=== PATIENT | female | born 1980 | race Caucasian/White ===

== ENCOUNTER 2021-04-11 10:47 | Emergency (ER) | payer MEDICAID ==
[~2021-04-11] VITALS: Ht 165.1 cm; Wt 55.4 kg
--- NOTE | 2021-04-11 12:01 | NUR ---
Breast feeding. R breast pain, redness, yellow thick pus. Last night fever 102.6 and chills. Last dose of ibuprofen at 1030. Temp now 100/vss
[2021-04-11] MEDS ORDERED: ACETAMINOPHEN 500 MG TABLET PO ONE (13:00)
[2021-04-11] MEDS ORDERED: ACETAMINOPHEN 500 MG TABLET ONE (13:12)
[2021-04-11] MEDS ORDERED: ONDANSETRON ODT 4 MG ONE (13:13)
--- NOTE | 2021-04-11 13:29 | NUR ---
PIV STARTED FROM WHICH 1 SET OF BLOOD CULTURES DRAW-THEN MEDICATED PER [facility] AT BEDSIDE FOR SECOND SET OF BLOOD CULURES/ADDITIONBAL LABS PROVIDED WITH HOT PACK FOR MASTITUS
[2021-04-11] MEDS ORDERED: SODIUM CHLORIDE 0.9% 1,000ML IVBOLUS ONE ×2 (13:30→15:30)
[2021-04-11] MEDS ORDERED: AMPICILLIN/SULBACTAM 3 GM in SODIUM CHLORIDE 0.9% 100 ML IV ONE (13:30)
[2021-04-11] MEDS ORDERED: ONDANSETRON ODT 4 MG PO ONE (13:30)
[2021-04-11 13:53] LABS: BASOPHILS % (AUTO) 0 % (0-1); EOSINOPHILS % (AUTO) 0 % (1-7); LYMPHOCYTES % (AUTO) 8 % (22-44); MEAN CORPUSCULAR HEMOGLOBIN 32.4 pg (27.0-34.8); MEAN CORPUSCULAR HGB CONC 33.8 g/dL (32.4-35.8); MEAN PLATELET VOLUME 9.9 fL (7.4-10.4); MONOCYTES % (AUTO) 6 % (2-9); NEUTROPHILS % (AUTO) 85 % (42-75); PLATELET COUNT 131 x10^3/uL (130-400); RED BLOOD COUNT 4.03 x10^6/uL (3.82-5.3); RED CELL DISTRIBUTION WIDTH 12.4 % (9.6-15.2)
[2021-04-11 14:00] LABS: ANION GAP 7 mmol/L (5-15); CALCIUM 8.7 mg/dL (8.5-10.1); CHLORIDE 108 mmol/L (98-107); CREATININE 0.78 mg/dL (0.55-1.02)
--- NOTE | 2021-04-11 15:33 | NUR ---
sbp remains low (70-80s) after 2l ns. erp aware however road test unremarkable, no change in hr, b/p actually improves to 90/50
[2021-04-11 16:04] VITALS: BP 172/80
--- NOTE | 2021-04-11 16:04 | NUR ---
erp to bedside to discuss risk/benefits of d/c. Patient/ understand home care and what to watch for-teach back successful
== END 2021-04-11 16:19 | disposition home or self-care (01) ==
LOC: ED 15:03
DX: N61.0 Mastitis without abscess (principal); R21 Rash and other nonspecific skin eruption; R11.0 Nausea
CPT/HCPCS: 36415; 80048; 83605; 85025; 87040; 96365; 99285; J0295; J7030; Q0162